=== PATIENT | male | born 1940 | race African-American/Black ===

== ENCOUNTER 2018-09-23 11:43 | Outpatient (CLI) | payer MEDICARE ==
--- NOTE | 2018-09-23 14:37 | XRay Report ---
THORACIC SPINE, 2 VIEWS: HISTORY: back pain. Mild osteopenia. No evidence for compression deformity, malalignment, or bone lesion. The posterior ribs are intact. The paraspinal soft tissues are within normal limits. IMPRESSION: Mild osteopenia. Otherwise, thoracic spine within normal limits.
--- NOTE | 2018-09-23 14:39 | XRay Report ---
LUMBOSACRAL SPINE, FIVE VIEWS: HISTORY: Back pain. Mild osteopenia is demonstrated. There is a subtle wedge deformity of the L1 vertebral body suggesting a chronic, healed L1 superior endplate fracture. An anterior bridging osteophyte is present at L1-2. No evidence for acute fracture, subluxation or bone lesion. Multilevel degenerative disc disease and facet arthropathy are identified. L5-S1 is the most affected level. The oblique images are limited, however, there is suggestion of moderate bilateral neural foraminal narrowing at L4-5. IMPRESSION: Osteopenia. Assumed chronic, healed L1 superior endplate fracture. Moderate lumbar spondylosis.
== END 2018-09-23 11:44 | disposition home or self-care (01) ==
LOC: XRAY 11:43
PROVIDERS: ATTEND Chiropractor
DX: M47.816 Spondylosis without myelopathy or radiculopathy, lumbar region (principal); M85.88 Other specified disorders of bone density and structure, other site; M51.37 Other intervertebral disc degeneration, lumbosacral region
CPT/HCPCS: 72070; 72110